=== PATIENT | male | born 1975 | race Caucasian/White ===

== ENCOUNTER 2023-11-15 00:28 | Day surgery (SDC) | payer OTHER, SELFPAY ==
[2023-10-24 15:36] VITALS: BMI 21.7
--- NOTE | 2023-11-13 08:46 | SUR.PREOP ---
Patient called regarding upcoming procedure. No answer. Left message.
--- NOTE | 2023-11-15 10:31 | WPDANESEPPF ---
Anes - Initial Pre Proc Eval Procedure: Operation Date: 11/15/23 11:30 Proposed Procedures p Screening Colonoscopy - Mark Lora MD Date/Time: 11/15/23 10:31 Surgeon: Mark Lora MD Pre Op Diagnosis: neoplasm screening Patient Data Age: 47 Gender: M Height: 1.73 m Weight: 65 kg Allergies Allergy/AdvReac Type Severity Reaction Status Date / Time Penicillins Allergy Unknown Rash Verified 10/24/23 15:34 Home Medications Medication Instructions Recorded Confirmed Type telmisartan 20 mg tablet 20 mg PO DAILY 10/24/23 10/24/23 History Patient hx anesthesia problems: none Family hx anesthesia problems: none Results Review: All pre-operative results and documents have been reviewed as part of the pre-operative evaluation. [facility] Family History Family History (Updated 01/18/16 @ 16:13 by DOCTOR UNKNOWN) Other Family history of malignant neoplasm of breast Social History Social History Years smoked: 18 Smoking status: Former smoker Tobacco type: cigarettes Alcohol intake: current Drinks per week: 14 Living arrangements: with family Spiritual care concerns: No Anes - Eval Final PreProcedure Day of Procedure 11/15/23 10:31 Patient weight: normal Heart: regular rate and rhythm Lungs: clear to auscultation Airway: Mallampati scale class II Neurological: alert and oriented Last oral intake: >/= 8 hours ASA classification: II Emergent: no Anesthetic plan: proceed Anesthesia type and monitoring: general GIVS and standard monitoring Results Review: All pre-operative results and documents have been reviewed as part of the pre-operative evaluation. Informed Consent: The patient's anesthetic plan and its attendant risks and benefits were discussed with the patient/family/POA. Questions were solicited and answers provided to the satisfaction of the patient/family/POA.
[2023-11-15 10:35] VITALS: BP 130/95; PULSE 58; RESP 19; TEMP 36.5; O2SAT 100
[2023-11-15] MEDS: LACTATED RINGERS 1,000 ML 150 ML IV CONT (10:48)
--- NOTE | 2023-11-15 10:50 | PM.HPGS ---
History of Present Illness History of Present Illness Consent: Risks, benefits, and alternatives have been discussed and questions answered. Patient agrees to proceed with procedure. Chief complaint: neoplasm screening Narrative: Padilla Theodore is a 47 year old male here for first screening colonoscopy Review of Systems Constitutional: Constitutional: Denies headache(s) and Denies weakness Eyes: Eyes: Denies blurry vision ENT: Reports Normal hearing present, Denies headache(s) and Denies neck pain Cardiovascular: Cardiovascular: Denies chest pain and Denies dyspnea Respiratory: Respiratory: Denies dyspnea Gastrointestinal: Gastrointestinal: Reports no additional gastrointestinal complaints Genitourinary: Genitourinary: Denies dysuria Musculoskeletal: Musculoskeletal: Denies neck pain Integumentary/Breasts: Skin/Breast: Denies dry skin Neurologic: Reports Normal hearing present, Denies headache(s) and Denies weakness Psychiatric: Psychiatric: Denies anxiety Endocrine: Endocrine: Denies change in body appearance Hematologic/Lymphatic: Hematologic/Lymphatic: Denies easy bleeding Allergic/Immunologic: Allergic/Immunologic: Denies urticaria PMF Past Medical History Medical History (Updated 11/15/23 @ 10:50 by Mark Lora MD) Colon cancer screening Family History Family History (Updated 01/18/16 @ 16:13 by DOCTOR UNKNOWN) Other Family history of malignant neoplasm of breast Social History Social History Years smoked: 18 Smoking status: Former smoker Tobacco type: cigarettes Alcohol intake: current Drinks per week: 14 Living arrangements: with family Spiritual care concerns: No Meds Home Medications and Allergies Home Medications Medication Instructions Recorded Confirmed Type telmisartan 20 mg tablet 20 mg PO DAILY 10/24/23 10/24/23 History Allergies Allergy/AdvReac Type Severity Reaction Status Date / Time Penicillins Allergy Unknown Rash Verified 11/15/23 10:34 Vital Signs Vital Signs - 24 hr 11/15/23 10:35 Temperature 97.7 F Pulse Rate 58 L Respiratory Rate 19 Blood Pressure 130/95 H Pulse Oximetry 100 Oxygen Delivery Room Air Exam Const: General: comfortable and no acute distress HENMT: Face/Nose/Sinus: Normal nares present Eyes: General: appearance normal, both eyes and all related structures Neck: Neck: no JVD Resp: Auscultation: clear to auscultation bilaterally Cardio: Rate: regular rate Rhythm: regular rhythm GI: Inspection: non-distended GI Palp: Yes Soft to palpation Skin: General skin exam: normal color Neuro: General: gait normal Speech: normal speech Extrem: General: normal to inspection Psych: Mental Status: mental status grossly normal Assessment and Plan Assessment and plan (1) Colon cancer screening: Code(s): Z12.11 - Encounter for screening for malignant neoplasm of colon Status: Acute Assessment and Plan: colonoscopy
[2023-11-15 11:05] VITALS: BP 116/77; PULSE 70; RESP 22; O2SAT 100
[2023-11-15 11:15] VITALS: BP 119/85; PULSE 58; RESP 18; O2SAT 100
[2023-11-15 11:25] VITALS: BP 143/98; PULSE 62; RESP 18; O2SAT 100
== END 2023-11-15 11:32 | disposition home or self-care (01) ==
PROVIDERS: PCP Internal Medicine; Visit Provider Internal Medicine Gastroenterology
PROC: 0DJD8ZZ Inspection of Lower Intestinal Tract, Via Natural or Artificial Opening Endoscopic (ICD-10-PCS; CPT 45378; principal; 2023-11-15 11:30)
DX: Z12.11 Encounter for screening for malignant neoplasm of colon (principal); K64.8 Other hemorrhoids; Z87.891 Personal history of nicotine dependence
CPT/HCPCS: 45378; J2704; J7120

== ENCOUNTER 2024-09-14 15:17 | Outpatient (CLI) | payer OTHER, SELFPAY ==
--- NOTE | ~2024-09-14 | MR_ITS ---
EXAMINATION: MRA brain wo con DATE: 09/14/2024 16:10 INDICATION: Headache. Family history of intracranial aneurysm. TECHNIQUE: Magnetic resonance angiography (MRA) of the brain was performed without intravenous contra st with T1-weighted SPGR by the 3D [id number] technique. Maximum intensity projection 3D-reconstr uctions were obtained. COMPARISON: None. FINDINGS: The vertebral arteries are codominant. There is no significant stenosis of basilar artery or the post erior cerebral arteries. The posterior communicating arteries are normal. There is no significant alireza nosis of the intracranial internal carotid arteries or anterior or middle cerebral arteries. Anterior communicating artery is normal. There is no aneurysm. IMPRESSION: 1. Normal MRA. Reviewed, dictated and finalized at location A. 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 Normal MRA.
== END 2024-09-14 15:18 | disposition home or self-care (01) ==
LOC: GOSHIMG 15:20
PROVIDERS: PCP Internal Medicine; Visit Provider Internal Medicine
DX: R51.9 Headache, unspecified (principal)
CPT/HCPCS: 70544